=== PATIENT | male | born 1975 | race Caucasian/White ===

== ENCOUNTER 2016-09-10 06:28 | Inpatient (IN) | payer MEDICAID ==
[~2016-09-10] VITALS: Ht 180.3 cm; Wt 80.3 kg
[~2016-09-10 06:28] MED LIST: HALO10 PO; HALO10TA15 PO; SERT25TA PO; SERT50TA PO; TRAZ-147 PO; Trazodone Hcl PO
[2016-09-10 07:21] LABS: BASOPHILS % (AUTO) 0.2 % (0.0-2.0); EOSINOPHILS % (AUTO) 1.8 % (1.0-6.0); HEMATOCRIT 44.1 % (41-53); HEMOGLOBIN 14.2 g/dL (13.5-17.5); LYMPHOCYTES # (AUTO) 2.1 K/uL (1.0-4.8); LYMPHOCYTES % (AUTO) 23.1 % (22.0-44.0); MEAN CORPUSCULAR HEMOGLOBIN 29.4 pg (26.0-34.0); MEAN CORPUSCULAR HGB CONC 32.2 G/dL (31.0-37.0); MEAN CORPUSCULAR VOLUME 91 fL (80-100); MONOCYTES # (AUTO) 0.5 K/uL (0.1-1.0); MONOCYTES % (AUTO) 5.3 % (2.0-9.0); NEUTROPHILS # (AUTO) 6.3 K/uL (1.8-7.7); NEUTROPHILS % (AUTO) 69.6 % (40.0-70.0); PLATELET COUNT (AUTO) 366 K/uL (150-450); RED BLOOD CELL COUNT(AUTO) 4.84 MIL/uL (4.50-5.90); RED CELL DISTRIBUTION WIDTH 13.8 % (11.5-14.5)
[2016-09-10] MEDS ORDERED: DiphenhydrAMINE HCL 50 MG/ML VIAL ONE (07:42)
[2016-09-10] MEDS ORDERED: HALOPERIDOL LACTATE 5 MG/ML VIAL ONE (07:42)
[2016-09-10] MEDS ORDERED: LORazepam 2 MG/ML VIAL ONE (07:42)
[2016-09-10] MEDS ORDERED: HALOPERIDOL LACTATE 5 MG/ML VIAL IM ONE (07:45)
[2016-09-10] MEDS ORDERED: LORazepam 2 MG/ML VIAL IM ONE (07:45)
[2016-09-10] MEDS ORDERED: DiphenhydrAMINE HCL 50 MG/ML VIAL IM ONE (07:45)
[2016-09-10] MEDS ORDERED: HALOPERIDOL 5 MG TABLET PO PRN (08:15)
[2016-09-10] MEDS ORDERED: ZOLPIDEM TARTRATE 10 MG TABLET PO PRN (08:15)
[2016-09-10 08:17] LABS: ANION GAP 13 mmol/L (8-16); CALCIUM, TOTAL 9.2 mg/dL (8.8-10.5); CARBON DIOXIDE 26 mmol/L (22-29); CHLORIDE 103 mmol/L (98-107); CREATININE 1.21 mg/dL (0.60-1.30); GLOMERULAR FILTR. RATE CALC > 60 mL/min (>60); POTASSIUM 4.1 mmol/L (3.5-5.1); SODIUM SERUM 142 mmol/L (136-145); UREA NITROGEN, BLOOD 29 mg/dL (7-18)
[2016-09-10 08:23] LABS: ALANINE AMINOTRANSFERASE 32 U/L (12-78); ALBUMIN 4.4 g/dL (3.4-5.0); ASPARTATE AMINOTRANSFERASE 26 U/L (15-37); BILIRUBIN,TOTAL 0.6 mg/dL (0.1-1.0); TOTAL PROTEIN, SERUM 7.8 g/dL (6.4-8.2)
[2016-09-10] MEDS ORDERED: CHLO100T24 PO (14:03)
[2016-09-10 14:23] VITALS: BP 113/77
[2016-09-11] MEDS ORDERED: MAG HYDROX/AL HYDROX/SIMETH ES 30 ML SUSPENSION UDCUP PO PRN (08:15)
[2016-09-11] MEDS ORDERED: CloNIDine HCL 0.1 MG TABLET PO PRN (08:15)
[2016-09-11] MEDS ORDERED: MAGNESIUM HYDROXIDE SUSPENSION 30 ML UDCUP PO PRN (08:15)
[2016-09-11] MEDS ORDERED: BACITRACIN 28.4 GM OINTMENT TP PRN (08:15)
[2016-09-11] MEDS ORDERED: PETROLATUM,WHITE 71 GM JELLY TP PRN (08:15)
[2016-09-11] MEDS ORDERED: LOPERAMIDE HCL 2 MG CAPSULE PO PRN (08:15)
[2016-09-11] MEDS ORDERED: BENZOCAINE/MENTHOL LOZENGE MM PRN (08:15)
[2016-09-11] MEDS ORDERED: ONDANSETRON HCL 4 MG TABLET PO PRN (08:15)
[2016-09-11] MEDS ORDERED: ALBUTEROL SULFATE HFA 90 MCG/PUFF 8 GM INHALER IH PRN (08:15)
[2016-09-11] MEDS ORDERED: ACETAMINOPHEN 325 MG TABLET PO PRN (08:15)
[2016-09-11] MEDS ORDERED: IBUPROFEN 600 MG TABLET PO PRN (08:15)
[2016-09-11] MEDS ORDERED: BENZOCAINE/MENTHOL LOZENGE [8 LOZENGES/PACKET] MM PRN (08:30)
[2016-09-11] MEDS: SERTRALINE HCL 50 MG TABLET PO SCH (09:30)
[2016-09-11] MEDS: TraZODone HCL 50 MG TABLET PO SCH (20:27)
[2016-09-11] MEDS: HALOPERIDOL 10 MG TABLET PO SCH (20:27)
[2016-09-12 08:12] VITALS: BP 85/41
[2016-09-12] MEDS: SERTRALINE HCL 50 MG TABLET PO SCH (08:12)
[2016-09-12 10:24] LABS: CHOL/HDL RATIO 3.1 (4.2-7.3)
[2016-09-12] MEDS: LORazepam 2 MG TABLET PO PRN ×2 (11:32→18:06)
[2016-09-12 11:49] LABS: THYROID STIMULATING HORMONE 0.96 uIU/mL (0.36-3.74)
[2016-09-12 18:02] VITALS: BP 106/63
[2016-09-12] MEDS ORDERED: TRAZ-144 PO (18:18)
[2016-09-12] MEDS: HALOPERIDOL 10 MG TABLET PO SCH (20:33)
[2016-09-12] MEDS: TraZODone HCL 50 MG TABLET PO SCH (20:34)
[2016-09-13 08:08] VITALS: BP 108/67
[2016-09-13] MEDS: CHOLECALCIFEROL (VIT D3) 1,000 UNITS TABLET PO SCH (09:34)
[2016-09-13] MEDS: SERTRALINE HCL 50 MG TABLET PO SCH (09:34)
[2016-09-13] MEDS: LORazepam 2 MG TABLET PO PRN ×3 (10:35→21:12)
[2016-09-13 16:00] VITALS: BP 103/63
[2016-09-13] MEDS: TraZODone HCL 50 MG TABLET PO SCH (21:12)
[2016-09-13] MEDS: HALOPERIDOL 10 MG TABLET PO SCH (21:12)
[2016-09-14 08:08] VITALS: BP 114/66
[2016-09-14] MEDS: CHOLECALCIFEROL (VIT D3) 1,000 UNITS TABLET PO SCH (08:53)
[2016-09-14] MEDS: SERTRALINE HCL 50 MG TABLET PO SCH (08:53)
[2016-09-14 16:00] VITALS: BP 104/62
[2016-09-14] MEDS: TraZODone HCL 50 MG TABLET PO SCH (20:26)
[2016-09-14] MEDS: HALOPERIDOL 10 MG TABLET PO SCH (20:26)
[2016-09-15] MEDS: SERTRALINE HCL 50 MG TABLET PO SCH (08:04)
[2016-09-15] MEDS: CHOLECALCIFEROL (VIT D3) 1,000 UNITS TABLET PO SCH (08:04)
[2016-09-15 08:10] VITALS: BP 119/56
[2016-09-15] MEDS ORDERED: SERT50TA12 PO (09:32)
== END 2016-09-15 10:45 | disposition home or self-care (01) | DRG 750 ==
LOC: EMS 06:29 → 3EC 12:03
PROVIDERS: ADMIT Psychiatry & Neurology Child & Adolescent Psychiatry; ATTEND Psychiatry & Neurology Child & Adolescent Psychiatry
DX: F20.0 Paranoid schizophrenia (principal); E55.9 Vitamin D deficiency, unspecified; F15.10 Other stimulant abuse, uncomplicated; Z72.0 Tobacco use; Z91.14 Patient's other noncompliance with medication regimen; Z78.1 Physical restraint status
CPT/HCPCS: 82306; 84443; 96372; 99285; G0480; J1200; J1630; J2060

== ENCOUNTER 2017-03-22 14:18 | Inpatient (IN) | payer MEDICAID ==
[~2017-03-22] VITALS: Ht 170.2 cm; Wt 78.9 kg
[~2017-03-22 14:18] MED LIST changes: -HALO10 PO; -SERT25TA PO; -SERT50TA PO; +SERT50TA12 PO; +TRAZ-144 PO; -TRAZ-147 PO; -Trazodone Hcl PO
[2017-03-22] MEDS ORDERED: DiphenhydrAMINE HCL 50 MG/ML VIAL IM ONE (14:45)
[2017-03-22] MEDS ORDERED: LORazepam 2 MG/ML VIAL IM ONE (14:45)
[2017-03-22] MEDS ORDERED: HALOPERIDOL LACTATE 5 MG/ML VIAL IM ONE (14:45)
[2017-03-22 15:28] LABS: BASOPHILS % (AUTO) 1.3 % (0.0-2.0); EOSINOPHILS % (AUTO) 3.3 % (1.0-6.0); HEMATOCRIT 39.7 % (41-53); HEMOGLOBIN 13.8 g/dL (13.5-17.5); LYMPHOCYTES # (AUTO) 2.4 K/uL (1.0-4.8); LYMPHOCYTES % (AUTO) 24.9 % (22.0-44.0); MEAN CORPUSCULAR HEMOGLOBIN 31.8 pg (26.0-34.0); MEAN CORPUSCULAR HGB CONC 34.7 G/dL (31.0-37.0); MEAN CORPUSCULAR VOLUME 92 fL (80-100); MONOCYTES # (AUTO) 0.8 K/uL (0.1-1.0); MONOCYTES % (AUTO) 7.6 % (2.0-9.0); NEUTROPHILS # (AUTO) 6.2 K/uL (1.8-7.7); NEUTROPHILS % (AUTO) 62.9 % (40.0-70.0); PLATELET COUNT (AUTO) 376 K/uL (150-450); RED BLOOD CELL COUNT(AUTO) 4.33 MIL/uL (4.50-5.90); RED CELL DISTRIBUTION WIDTH 13.2 % (11.5-14.5); WHITE BLOOD COUNT (AUTO) 9.9 K/uL (4.5-11.0)
[2017-03-22 15:41] LABS: ANION GAP 7 mmol/L (8-16); CALCIUM, TOTAL 8.8 mg/dL (8.8-10.5); CARBON DIOXIDE 29 mmol/L (22-29); CHLORIDE 103 mmol/L (98-107); GLOMERULAR FILTR. RATE CALC > 60 mL/min (>60); POTASSIUM 3.9 mmol/L (3.5-5.1); SODIUM SERUM 139 mmol/L (136-145); UREA NITROGEN, BLOOD 25 mg/dL (7-18)
[2017-03-22 15:47] LABS: ALANINE AMINOTRANSFERASE 26 U/L (12-78); ALBUMIN 4.1 g/dL (3.4-5.0); ASPARTATE AMINOTRANSFERASE 27 U/L (15-37); BILIRUBIN,TOTAL 0.4 mg/dL (0.1-1.0); TOTAL PROTEIN, SERUM 7.4 g/dL (6.4-8.2)
[2017-03-22] MEDS ORDERED: ZOLPIDEM TARTRATE 10 MG TABLET PO PRN (16:30)
[2017-03-22 18:38] VITALS: BP 101/57
[2017-03-22] MEDS: TraZODone HCL 50 MG TABLET PO SCH (20:33)
[2017-03-22] MEDS: HALOPERIDOL 10 MG TABLET PO SCH (20:33)
[2017-03-22] MEDS ORDERED: INFLUENZA VIRUS VACCINE QVS 2017-18 (3YR+)/PF 60 MCG/0.5 ML SYRINGE IM ONE (20:45)
[2017-03-23 06:23] VITALS: BP 110/58
[2017-03-23 08:00] VITALS: BP 134/66
[2017-03-23] MEDS ORDERED: BACITRACIN 28.4 GM OINTMENT TP PRN (08:30)
[2017-03-23] MEDS ORDERED: MAG HYDROX/AL HYDROX/SIMETH ES 30 ML SUSPENSION UDCUP PO PRN (08:30)
[2017-03-23] MEDS ORDERED: ACETAMINOPHEN 325 MG TABLET PO PRN (08:30)
[2017-03-23] MEDS ORDERED: ALBUTEROL SULFATE HFA 90 MCG/PUFF 8 GM INHALER IH PRN (08:30)
[2017-03-23] MEDS ORDERED: LOPERAMIDE HCL 2 MG CAPSULE PO PRN (08:30)
[2017-03-23] MEDS ORDERED: IBUPROFEN 600 MG TABLET PO PRN (08:30)
[2017-03-23] MEDS ORDERED: BENZOCAINE/MENTHOL LOZENGE MM PRN (08:30)
[2017-03-23] MEDS ORDERED: ONDANSETRON HCL 4 MG TABLET PO PRN (08:30)
[2017-03-23] MEDS ORDERED: PETROLATUM,WHITE 71 GM JELLY TP PRN (08:30)
[2017-03-23] MEDS ORDERED: CloNIDine HCL 0.1 MG TABLET PO PRN (08:30)
[2017-03-23] MEDS ORDERED: MAGNESIUM HYDROXIDE SUSPENSION 30 ML UDCUP PO PRN (08:30)
[2017-03-23] MEDS: SERTRALINE HCL 50 MG TABLET PO SCH (08:46)
[2017-03-23] MEDS: CHOLECALCIFEROL (VIT D3) 1,000 UNITS TABLET PO SCH (08:46)
[2017-03-23] MEDS: HALOPERIDOL 5 MG TABLET PO PRN (16:33)
[2017-03-23] MEDS: LORazepam 2 MG TABLET PO PRN (16:33)
[2017-03-23] MEDS: HALOPERIDOL 10 MG TABLET PO SCH (20:36)
[2017-03-23] MEDS: TraZODone HCL 50 MG TABLET PO SCH (20:36)
[2017-03-24 06:25] VITALS: BP 108/65
[2017-03-24 08:09] VITALS: BP 105/60
[2017-03-24] MEDS: CHOLECALCIFEROL (VIT D3) 1,000 UNITS TABLET PO SCH (08:56)
[2017-03-24] MEDS: HALOPERIDOL 5 MG TABLET PO PRN (08:56)
[2017-03-24] MEDS: SERTRALINE HCL 50 MG TABLET PO SCH (08:56)
[2017-03-24 16:00] VITALS: BP 106/65
[2017-03-24] MEDS: TraZODone HCL 50 MG TABLET PO SCH (20:41)
[2017-03-24] MEDS: HALOPERIDOL 10 MG TABLET PO SCH (20:41)
[2017-03-24] MEDS: LORazepam 2 MG TABLET PO PRN (20:41)
[2017-03-25 06:35] VITALS: BP 109/65
[2017-03-25 08:46] VITALS: BP 98/73
[2017-03-25] MEDS: CHOLECALCIFEROL (VIT D3) 1,000 UNITS TABLET PO SCH (08:58)
[2017-03-25] MEDS: SERTRALINE HCL 50 MG TABLET PO SCH (08:58)
[2017-03-25] MEDS ORDERED: VITAD1000 PO (14:59)
== END 2017-03-25 16:10 | disposition home or self-care (01) | DRG 750 ==
LOC: EMS 14:19 → B3A 17:14
PROVIDERS: ADMIT Psychiatry & Neurology Child & Adolescent Psychiatry; ATTEND Psychiatry & Neurology Child & Adolescent Psychiatry
DX: F20.0 Paranoid schizophrenia (principal); F29 Unspecified psychosis not due to a substance or known physiological condition; E55.9 Vitamin D deficiency, unspecified; F15.10 Other stimulant abuse, uncomplicated; F17.200 Nicotine dependence, unspecified, uncomplicated; G47.00 Insomnia, unspecified; K59.00 Constipation, unspecified; F41.9 Anxiety disorder, unspecified
CPT/HCPCS: 96372; 99291; G0480; J1200; J1630; J2060

== ENCOUNTER 2017-08-02 08:33 | Inpatient (IN) | payer MEDICAID ==
[~2017-08-02] VITALS: Ht 170.2 cm; Wt 85.3 kg
[~2017-08-02 08:33] MED LIST changes: +VITAD1000 PO
[2017-08-02] MEDS ORDERED: HALOPERIDOL LACTATE 5 MG/ML VIAL IM ONE (09:00)
[2017-08-02] MEDS ORDERED: DiphenhydrAMINE HCL 50 MG/ML VIAL IM ONE (09:00)
[2017-08-02] MEDS ORDERED: LORazepam 2 MG/ML VIAL IM ONE (09:00)
[2017-08-02 09:02] LABS: BASOPHILS % (AUTO) 1.3 % (0.0-2.0); EOSINOPHILS % (AUTO) 5.1 % (1.0-6.0); HEMATOCRIT 41.9 % (41-53); HEMOGLOBIN 14.5 g/dL (13.5-17.5); LYMPHOCYTES % (AUTO) 26.9 % (22.0-44.0); MEAN CORPUSCULAR HEMOGLOBIN 30.9 pg (26.0-34.0); MEAN CORPUSCULAR HGB CONC 34.7 G/dL (31.0-37.0); MEAN CORPUSCULAR VOLUME 89 fL (80-100); MONOCYTES # (AUTO) 0.9 K/uL (0.1-1.0); MONOCYTES % (AUTO) 8.1 % (2.0-9.0); NEUTROPHILS # (AUTO) 6.5 K/uL (1.8-7.7); NEUTROPHILS % (AUTO) 58.6 % (40.0-70.0); PLATELET COUNT (AUTO) 371 K/uL (150-450); RED CELL DISTRIBUTION WIDTH 13.3 % (11.5-14.5)
[2017-08-02 09:18] LABS: ANION GAP 13 mmol/L (8-16); CALCIUM, TOTAL 9.1 mg/dL (8.8-10.5); CARBON DIOXIDE 25 mmol/L (22-29); CHLORIDE 99 mmol/L (98-107); CREATININE 1.26 mg/dL (0.60-1.30); GLOMERULAR FILTR. RATE CALC > 60 mL/min (>60); GLUCOSE,RANDOM 124 mg/dL (70-110); POTASSIUM 3.6 mmol/L (3.5-5.1); SODIUM SERUM 137 mmol/L (136-145); UREA NITROGEN, BLOOD 24 mg/dL (7-18)
[2017-08-02 09:22] LABS: ALANINE AMINOTRANSFERASE 55 U/L (12-78); ALBUMIN 4.2 g/dL (3.4-5.0); ALKALINE PHOSPHATASE 79 U/L (46-116); ASPARTATE AMINOTRANSFERASE 37 U/L (15-37); BILIRUBIN,TOTAL 0.7 mg/dL (0.1-1.0); TOTAL PROTEIN, SERUM 7.8 g/dL (6.4-8.2)
[2017-08-02] MEDS ORDERED: HALOPERIDOL 5 MG TABLET PO PRN (10:30)
[2017-08-02] MEDS ORDERED: ZOLPIDEM TARTRATE 10 MG TABLET PO PRN (10:30)
[2017-08-02 16:05] VITALS: BP 108/63
[2017-08-02] MEDS: LORazepam 2 MG TABLET PO PRN (20:00)
[2017-08-02] MEDS: HALOPERIDOL 10 MG TABLET PO SCH (20:00)
[2017-08-02] MEDS: TraZODone HCL 50 MG TABLET PO SCH (20:00)
[2017-08-03 08:04] VITALS: BP 111/64
[2017-08-03] MEDS: SERTRALINE HCL 50 MG TABLET PO SCH (09:03)
[2017-08-03 16:24] VITALS: BP 118/84
[2017-08-03] MEDS ORDERED: ONDANSETRON HCL 4 MG TABLET PO PRN (17:15)
[2017-08-03] MEDS ORDERED: MAGNESIUM HYDROXIDE SUSPENSION 30 ML UDCUP PO PRN (17:15)
[2017-08-03] MEDS ORDERED: BENZOCAINE/MENTHOL LOZENGE MM PRN (17:15)
[2017-08-03] MEDS ORDERED: IBUPROFEN 600 MG TABLET PO PRN (17:15)
[2017-08-03] MEDS ORDERED: BACITRACIN 28.4 GM OINTMENT TP PRN (17:15)
[2017-08-03] MEDS ORDERED: ALBUTEROL SULFATE HFA 90 MCG/PUFF 8 GM INHALER IH PRN (17:15)
[2017-08-03] MEDS ORDERED: MAG HYDROX/AL HYDROX/SIMETH ES 30 ML SUSPENSION UDCUP PO PRN (17:15)
[2017-08-03] MEDS ORDERED: ACETAMINOPHEN 325 MG TABLET PO PRN (17:15)
[2017-08-03] MEDS ORDERED: PETROLATUM,WHITE 71 GM JELLY TP PRN (17:15)
[2017-08-03] MEDS ORDERED: CloNIDine HCL 0.1 MG TABLET PO PRN (17:15)
[2017-08-03] MEDS ORDERED: LOPERAMIDE HCL 2 MG CAPSULE PO PRN (17:15)
[2017-08-03] MEDS: TraZODone HCL 50 MG TABLET PO SCH (20:24)
[2017-08-03] MEDS: HALOPERIDOL 10 MG TABLET PO SCH (20:24)
[2017-08-04 06:06] VITALS: BP_SYST 122; BP_DIAS 72; BP_DIAS 78
[2017-08-04 08:21] VITALS: BP 118/68
[2017-08-04] MEDS: SERTRALINE HCL 50 MG TABLET PO SCH (08:30)
[2017-08-04] MEDS: CHOLECALCIFEROL (VIT D3) 1,000 UNITS TABLET PO SCH (08:30)
[2017-08-04 16:03] VITALS: BP 105/60
[2017-08-04] MEDS: LORazepam 2 MG TABLET PO PRN (16:09)
[2017-08-04] MEDS: TraZODone HCL 50 MG TABLET PO SCH (20:16)
[2017-08-04] MEDS: HALOPERIDOL 10 MG TABLET PO SCH (20:16)
[2017-08-05 08:08] VITALS: BP 111/63
[2017-08-05] MEDS: SERTRALINE HCL 50 MG TABLET PO SCH (08:14)
[2017-08-05] MEDS: CHOLECALCIFEROL (VIT D3) 1,000 UNITS TABLET PO SCH (08:14)
[2017-08-05 16:25] VITALS: BP 108/60
[2017-08-05] MEDS: LORazepam 2 MG TABLET PO PRN (16:33)
[2017-08-05] MEDS: HALOPERIDOL 10 MG TABLET PO SCH (20:58)
[2017-08-05] MEDS: TraZODone HCL 50 MG TABLET PO SCH (20:58)
[2017-08-06 01:09] VITALS: BP 107/64
[2017-08-06] MEDS: LORazepam 2 MG TABLET PO PRN (05:15)
[2017-08-06] MEDS: CHOLECALCIFEROL (VIT D3) 1,000 UNITS TABLET PO SCH (08:03)
[2017-08-06] MEDS: SERTRALINE HCL 50 MG TABLET PO SCH (08:03)
[2017-08-06 08:05] VITALS: BP 100/73
== END 2017-08-06 15:40 | disposition home or self-care (01) | DRG 750 ==
LOC: EEVIPCON 08:33 → EMS 08:36 → B3A 11:16
PROVIDERS: ADMIT Psychiatry & Neurology Psychiatry; ATTEND Psychiatry & Neurology Psychiatry
DX: F20.0 Paranoid schizophrenia (principal); Z91.19 Patient's noncompliance with other medical treatment and regimen; E55.9 Vitamin D deficiency, unspecified; Z59.0 Homelessness; G47.00 Insomnia, unspecified; F15.10 Other stimulant abuse, uncomplicated; F17.200 Nicotine dependence, unspecified, uncomplicated; Z79.899 Other long term (current) drug therapy
CPT/HCPCS: G0480; J1200; J1630; J2060